=== PATIENT | male | born 1975 | race Caucasian/White ===

== ENCOUNTER 2020-11-20 08:25 | Day surgery (SDC) | payer OTHER ==
[2020-11-18 09:16] VITALS: BMI 28.7
[~2020-11-20 08:25] MED LIST: LACTATED RINGERS 1,000 ML IV SCH; LIDOCAINE 1% (10MG/ML) FOR IV START INTRADERMA PRN
[2020-11-20] MEDS ORDERED: LACTATED RINGERS 1,000 ML IV ONE (08:45)
[2020-11-20 08:54] VITALS: TEMP 97.8
[2020-11-20] MEDS ORDERED: PROPOFOL 10 MG/ML 20 ML VIAL IV ONE (10:23)
--- NOTE | 2020-11-20 10:34 | P.GSHP ---
History of Present Illness H&P Date: 11/20/20 Chief Complaint: GERD, history of GI bleed This a 45-year-old male who presents today for EGD colonoscopy. Patient has issues with GERD and GI bleed. Past Medical History Past Medical History: GERD/Reflux, Osteoarthritis (OA), Sleep Apnea/CPAP/BIPAP Additional Past Medical History / Comment(s): Hx blood in stool 20 yrs ago, no current issues. CPAP use. History of Any Multi-Drug Resistant Organisms: None Reported Past Surgical History: Hernia Repair Additional Past Surgical History / Comment(s): Colonoscopy. Past Anesthesia/Blood Transfusion Reactions: No Reported Reaction Past Psychological History: No Psychological Hx Reported Smoking Status: Former smoker Past Alcohol Use History: Occasional Additional Past Alcohol Use History / Comment(s): Chewed tobacco, quit 2 yrs ago. Past Drug Use History: None Reported - Past Family History Mother Family Medical History: No Reported History Medications and Allergies Home Medications Medication Instructions Recorded Confirmed Type Acetaminophen [Tylenol] 500 - 1,000 mg PO Q4-6H PRN 11/18/20 11/18/20 History Cetirizine HCl [Zyrtec] 10 mg PO DAILY 11/18/20 11/18/20 History Omeprazole 20 mg PO DAILY 11/18/20 11/18/20 History Allergies Allergy/AdvReac Type Severity Reaction Status Date / Time silver sulfadiazine Allergy Rash/Hives Verified 11/18/20 09:17 [From [facility]vadene] Surgical - Exam Vital Signs Temp Pulse Resp BP Pulse Ox 97.8 F 78 18 173/98 98 11/20/20 08:54 11/20/20 08:54 11/20/20 08:54 11/20/20 08:54 11/20/20 08:54 - General well developed, well nourished, no distress - Eyes PERRL - ENT normal pinna - Neck no masses - Respiratory normal expansion - Cardiovascular Rhythm: regular - Abdomen Abdomen: soft, non tender Assessment and Plan Assessment: GERD, GI bleed. We'll perform EGD and colonoscopy.
--- NOTE | 2020-11-20 10:52 | P.OP ---
Date of Procedure: 11/20/20 Preoperative Diagnosis: GERD History of GI bleed Postoperative Diagnosis: Antral gastritis External hemorrhoids Diverticulosis Procedure(s) Performed: EGD Colonoscopy Anesthesia: MAC Surgeon: Johan Brown Pathology: other (Antral) Condition: stable Disposition: PACU Description of Procedure: Patient's placed on the endoscopy table in the lateral position. He received IV sedation. The gastroscope placed oropharynx passed in the esophagus into the stomach. Scope was then placed through the pylorus. The first and second portion of duodenum appeared normal. Scope was then brought back the antrum and this was minimal inflamed. A biopsies performed. Scope was then retroflexed and remainder stomach appeared normal. The GE junction was at 47. The distal esophagus.. Proximal esophagus repeat withdrawn for patient. Next digital rectal exam was performed which revealed external hemorrhoids. Flexible colonoscope was then placed patient anus passed rotator entire colon. The ileocecal valve sutures. The cecum, ascending and transverse colon appeared normal. In the descending and; there is mild diverticular changes. Scope summer back the rectum and this appeared normal. Scope was withdrawn for patient.
[2020-11-20 10:58] VITALS: RESP 16
[2020-11-20 11:13] VITALS: BP 135/84; PULSE 70
== END 2020-11-20 11:25 ==
LOC: ORWHC2ENDO 08:25
PROVIDERS: ATTEND Surgery
DX: K64.4 Residual hemorrhoidal skin tags (principal); K92.2 Gastrointestinal hemorrhage, unspecified; M19.90 Unspecified osteoarthritis, unspecified site; G47.30 Sleep apnea, unspecified; Z98.890 Other specified postprocedural states; Z87.891 Personal history of nicotine dependence; Z79.899 Other long term (current) drug therapy; Z88.2 Allergy status to sulfonamides
CPT/HCPCS: 88305; 45378; 43239; J2704

== ENCOUNTER 2024-09-20 07:19 | Day surgery (SDC) | payer OTHER ==
[2024-09-14 14:26] VITALS: BMI 28.7
[2024-09-20] MEDS: IV FLUID CONTINUATION 1,000 ML IV ONE (07:50)
[2024-09-20 07:58] VITALS: RESP 16; TEMP 97.1
[2024-09-20] MEDS: LACTATED RINGERS 1,000 ML IV SCH (07:58)
[2024-09-20] MEDS ORDERED: PROPOFOL 10 MG/ML 20 ML VIAL IV ONE (08:20)
--- NOTE | 2024-09-20 08:26 | P.GSHP ---
History of Present Illness H&P Date: 09/20/24 Chief Complaint: GI bleed, hemorrhoids Is a 49-year-old male whose had complaints of GI bleed and hemorrhoids. Patient presents today for colonoscopy. Past Medical History Past Medical History: GERD/Reflux, Osteoarthritis (OA), Sleep Apnea/CPAP/BIPAP Additional Past Medical History / Comment(s): Hx blood in stool 20 yrs ago, no current issues. CPAP use., hemorrhoids History of Any Multi-Drug Resistant Organisms: None Reported Past Surgical History: Hernia Repair Additional Past Surgical History / Comment(s): Colonoscopy. Past Anesthesia/Blood Transfusion Reactions: No Reported Reaction Additional Past Anesthesia/Blood Transfusion Reaction / Comment(s): no blood transfusion Smoking Status: Former smoker - Past Family History Mother Family Medical History: No Reported History Medications and Allergies Home Medications Medication Instructions Recorded Confirmed Type Acetaminophen [Tylenol] 500 - 1,000 mg PO Q4-6H PRN 11/18/20 09/20/24 History Cetirizine HCl [Zyrtec] 10 mg PO DAILY 11/18/20 09/20/24 History Omeprazole 20 mg PO DAILY 11/18/20 09/20/24 History Hydrocortisone/Pramoxine 1 applic RECTAL DIRECTED PRN 09/14/24 09/20/24 History [Proctofoam-Hc 1%-1% Foam] Allergies Allergy/AdvReac Type Severity Reaction Status Date / Time silver sulfadiazine Allergy Rash/Hives Verified 09/20/24 07:59 [From [facility]] Surgical - Exam Vital Signs Temp Pulse Resp BP Pulse Ox 97.1 F L 62 16 136/89 97 09/20/24 07:57 09/20/24 07:57 09/20/24 07:57 09/20/24 07:57 09/20/24 07:57 - General well developed, well nourished, no distress - Eyes PERRL - ENT normal pinna - Neck no masses - Respiratory normal expansion - Cardiovascular Rhythm: regular - Abdomen Abdomen: soft, non tender Assessment and Plan Plan: History of hemorrhoids, GI bleed will perform colonoscopy.
--- NOTE | 2024-09-20 08:40 | P.OP ---
Date of Procedure: 09/20/24 Preoperative Diagnosis: GI bleed Hemorrhoids Postoperative Diagnosis: External hemorrhoids Procedure(s) Performed: Colonoscopy Anesthesia: MAC Surgeon: Johan Brown Condition: stable Disposition: PACU Description of Procedure: The patient was placed on the endoscopy table in the lateral position. He received IV sedation. Digital rectal exam was performed. There was significant external hemorrhoids with prolapsing hemorrhoids and evidence of a thrombosed hemorrhoid that had blood. Flexible colonoscope was then placed patient Anaspaz throughout the colon. Scope then placed in the cecum due to poor prep. Scope withdrawn. The visualized right colon appeared normal. In the descending and transverse colon there is a few scattered diverticuli. Scope was Ruback in the sigmoid colon this appeared normal. Scope was Ruback the rectum this appeared normal. Scope was brought withdrawn through the anus and prolapsed external hemorrhoids were visualized. Scope was withdrawn to the patient.
[2024-09-20 08:59] VITALS: BP 128/81; PULSE 67
== END 2024-09-20 09:26 | disposition home or self-care (01) ==
LOC: ORWHC2ENDO 07:19
PROVIDERS: ATTEND Surgery
DX: K92.2 Gastrointestinal hemorrhage, unspecified (principal); K64.8 Other hemorrhoids
CPT/HCPCS: 45378; J2704